=== PATIENT | female | born 1985 | race Two or more races ===

== ENCOUNTER 2018-10-16 20:37 | Emergency (ER) | payer SELFPAY ==
[~2018-10-16] VITALS: Ht 162.6 cm; Wt 55.0 kg
[2018-10-16 22:50] VITALS: BP 112/74
== END 2018-10-17 01:08 | disposition home or self-care (01) ==
LOC: ER 20:37
DX: T40.7X5A Adverse effect of cannabis (derivatives), initial encounter (principal); R11.2 Nausea with vomiting, unspecified; F12.10 Cannabis abuse, uncomplicated; Y92.89 Other specified places as the place of occurrence of the external cause
CPT/HCPCS: 99283